=== PATIENT | female | born 1960 | race Caucasian/White ===

== ENCOUNTER 2017-02-19 18:49 | Inpatient (IN) | payer OTHER ==
[~2017-02-19] VITALS: Ht 157.5 cm; Wt 47.6 kg
[~2017-02-19 18:49] MED LIST: AVAPRO75 MG PO; HUMALOG100 U/M1; SYNTHROID50 MCG; VYTORIN 10-20 M1 TAB PO
== END 2017-03-02 10:26 | disposition home or self-care (01) | DRG 377 ==
LOC: ER 18:49 → SEC-K 02-20 13:01 → MEDJ 02-20 13:01
PROC: 4A033R1 Measurement of Arterial Saturation, Peripheral, Percutaneous Approach (ICD-10-PCS; principal; 2017-02-20)
PROC: 8E0ZXY6 Isolation (ICD-10-PCS; 2017-02-22)
DX: K92.2 Gastrointestinal hemorrhage, unspecified (principal); E10.10 Type 1 diabetes mellitus with ketoacidosis without coma; I13.0 Hypertensive heart and chronic kidney disease with heart failure and stage 1 through stage 4 chronic kidney disease, or unspecified chronic kidney disease; N18.4 Chronic kidney disease, stage 4 (severe); N39.0 Urinary tract infection, site not specified; Z79.4 Long term (current) use of insulin; E10.319 Type 1 diabetes mellitus with unspecified diabetic retinopathy without macular edema; E10.65 Type 1 diabetes mellitus with hyperglycemia; E10.42 Type 1 diabetes mellitus with diabetic polyneuropathy; E10.22 Type 1 diabetes mellitus with diabetic chronic kidney disease; I50.9 Heart failure, unspecified; K29.00 Acute gastritis without bleeding; E86.0 Dehydration; K52.89 Other specified noninfective gastroenteritis and colitis; J20.9 Acute bronchitis, unspecified; B96.1 Klebsiella pneumoniae [K. pneumoniae] as the cause of diseases classified elsewhere; Z16.12 Extended spectrum beta lactamase (ESBL) resistance